=== PATIENT | male | born 1965 | race Two or more races ===

== ENCOUNTER → 2018-02-03 | Outpatient (CLI) | payer MEDICARE ==
--- NOTE | 2018-02-03 15:52 | RAD ---
History: Low back pain for 3 weeks. Comparison: None. Findings: AP and lateral views of the lumbar spine, 3 images. Segmented transverse processes are seen at the L1 level. 5 lumbar type vertebral bodies are present. No acute fracture or acute malalignment is identified. No spondylolysis or spondylolisthesis is appreciated. Mild narrowing of the L1-2 disc space is seen. Intervertebral disc heights are otherwise preserved. Facet degeneration is seen at L4-5 and L5-S1. Cholecystectomy clips are seen. Impression: Mild degeneration. Electronically signed by: Alberto Penaloza MD (02/03/2018 3:49 PM) [facility]
== END | disposition home or self-care (01) ==
LOC: PMG 15:05
PROVIDERS: ATTEND Nurse Practitioner Family
DX: M51.36 Other intervertebral disc degeneration, lumbar region (principal); M48.061 Spinal stenosis, lumbar region without neurogenic claudication
CPT/HCPCS: 72100

== ENCOUNTER 2018-11-27 21:23 | Inpatient (IN) | payer MEDICARE, OTHER ==
[~2018-11-27] VITALS: Ht 167.6 cm; Wt 81.8 kg
[~2018-11-27 21:23] MED LIST: ASCO100T4 PO; ATOR40TA PO; BIOT1CAP3 PO
--- NOTE | 2018-11-27 21:58 | PHYS DOC ---
Past History Past Medical History: Cancer (BRCA), High Cholesterol Past Surgical History: , Other Additional Past Surgical Histo: Mastectomy Smoking: Non-smoker Alcohol Use: None Drug Use: None Adult General Chief Complaint Chief Complaint: UPPER EXTREMITY SWELLING HPI HPI The patient presents to the emergency department for evaluation. She states that for the past 24 hours, she has developed pain and swelling in her left arm , with some warmth and erythema and some redness. She hasn't had any fevers or chills per se, but movement and palpation of her left arm worsen her pain. The pain radiates from her upper arm towards the left shoulder and left lateral chest area. She admits to some shortness of breath. She is noted to be tachycardic upon arrival. There are no alleviating or exacerbating factors to her symptoms, except as noted above. Review of Systems Review of Systems Constitutional: Denies fever or chills [] Eyes: Denies change in visual acuity, redness, or eye pain [] HENT: Denies nasal congestion or sore throat [] Respiratory: Denies cough. The patient admits to shortness of breath [] Cardiovascular: No additional information not addressed in HPI [] GI: Denies abdominal pain, nausea, vomiting, bloody stools or diarrhea [] : Denies dysuria or hematuria [] Musculoskeletal: Denies back pain or joint pain [] Integument: Denies rash or skin lesions [] Neurologic: Denies headache, focal weakness or sensory changes [] Endocrine: Denies polyuria or polydipsia [] All other systems were reviewed and found to be within normal limits, except as documented in this note. Allergies Allergies Allergies Coded Allergies Type Severity Reaction Last Updated Verified No Known Drug Allergies 06/30/15 No Physical Exam Physical Exam PHYSICAL EXAM: CONSTITUTIONAL: Well developed, well nourished HEAD: normocephalic, atraumatic EENT: PERRL, EOMI. Conjunctivae normal color, sclerae non-icteric; moist mucous membranes. NECK: Supple, non-tender; no meningismus. LUNGS: Lungs CTA, breathing even and unlabored. Normal air movement. HEART: Regular rate and rhythm, no murmur CHEST: No deformity; non-tender ABDOMEN: The abdomen is soft, and non-tender, no masses or bruits. EXTREM: There is tenderness to palpation, warmth, erythema, and some soft tissue swelling noted in the proximal right arm, primarily in the biceps area, and medially, but not limited to the biceps muscle group. The area is tender to palpation. There are some faint erythematous macules, without any vesicular or purpuric lesions. There is a palpable left radial pulse. There is normal range of motion of the joints of the left arm without any focal tenderness to palpation of the joints. The remainder of extremities are unremarkable, with Normal ROM; no deformity, no calf tenderness. Normal pulses palpable in all extremities. There is no pedal edema. SKIN: No rash; no diaphoresis NEURO: Alert; normal speech and cognition; CN's grossly intact; strength grossly intact without focal deficit. BACK: No CVA TTP. Current Patient Data Lab Results Laboratory Tests Test 11/27/18 22:28 White Blood Count 12.5 x10^3/uL Red Blood Count 4.32 x10^6/uL Hemoglobin 13.0 g/dL Hematocrit 38.7 % Mean Corpuscular Volume 90 fL Mean Corpuscular Hemoglobin 30 pg Mean Corpuscular Hemoglobin Concent 34 g/dL Red Cell Distribution Width 14.0 % Platelet Count 299 x10^3/uL Neutrophils (%) (Auto) 74 % Lymphocytes (%) (Auto) 18 % Monocytes (%) (Auto) 6 % Eosinophils (%) (Auto) 1 % Basophils (%) (Auto) 2 % Neutrophils # (Auto) 9.2 x10^3uL Lymphocytes # (Auto) 2.3 x10^3/uL Monocytes # (Auto) 0.8 x10^3/uL Eosinophils # (Auto) 0.1 x10^3/uL Basophils # (Auto) 0.2 x10^3/uL Lactic Acid Level 2.4 mmol/L Current Medications Medications (Trade) Dose Ordered Sig/Yesenia Route PRN Reason Start Time Stop Time Status Last Admin Dose Admin Morphine Sulfate (Morphine 4mg Syringe) 4 mg 1X ONCE IV 11/27/18 22:30 11/27/18 22:31 DC 11/27/18 22:39 Sodium Chloride 1,000 ml @ 1,000 mls/hr Q1H IV 11/27/18 22:30 11/27/18 23:29 DC 11/27/18 22:40 Clindamycin Phosphate 50 ml @ 100 mls/hr 1X ONCE IV 11/27/18 22:30 3/14/19 22:59 DC 11/27/18 22:39 Sodium Chloride 1,000 ml @ 1,000 mls/hr Q1H IV 11/27/18 23:30 11/28/18 01:51 EKG EKG [] Radiology/Procedures Radiology/Procedures [ER physician preliminary chest x-ray interpretation: No acute disease. ER physician preliminary left humerus x-ray interpretation: No acute bony abnormality or soft tissue abnormality] Course & Med Decision Making Course & Med Decision Making Pertinent Labs and Imaging studies reviewed. (See chart for details) []12:05 AM: The patient's condition remains stable. She remains tachycardic with a heart rate of 126 bpm, but her blood pressure is normal. Her pulse oximeter is 98% on room air. Differential diagnosis includes cellulitis, although myositis, or even DVT are certainly on the differential. There were several peripheral lab sticks that were attempted, as the initial blood hemolyzed, and the patient finally refused any further blood sticks. I did have an extensive discussion with the patient, through a jboss architect, about the inability to fully assess and evaluate the patient without obtaining further blood, but the patient declined. I discussed the case with her PCP, who will admit the patient for further evaluation and treatment. Dragon Disclaimer Dragon Disclaimer This electronic medical record was generated, in whole or in part, using a voice recognition dictation system. Departure Departure: Impression: Primary Impression: Left upper arm pain Additional Impression: Cellulitis Disposition: ADMITTED INPATIENT Admitting Physician: Dez Phelps Condition: STABLE Referrals: DEZ PHELPS MD (PCP) Problem Qualifiers MADDISON VAZQUEZ MD Nov 27, 2018 21:58
[2018-11-27] MEDS ORDERED: MORPHINE SULFATE 4 MG/ML DISP.SYRIN. IV ONE (22:30)
[2018-11-27] MEDS ORDERED: IV NORMAL SALINE 1,000ML 1,000 ML IV SCH (22:30)
[2018-11-27] MEDS ORDERED: CLINDAMYCIN 900MG PREMIX 50 ML IV ONE (22:30)
[2018-11-27 22:44] LABS: BASO # 0.2 x10^3/uL (0.0-0.2); BASO % 2 % (0-3); EOS # 0.1 x10^3/uL (0.0-0.7); EOS % 1 % (0-3); HEMATOCRIT 38.7 % (36.0-47.0); LYMPH # 2.3 x10^3/uL (1.0-4.8); LYMPH % 18 % (24-48); MEAN CORPUSCULAR HEMOGLOBIN 30 pg (25-35); MEAN CORPUSCULAR HGB CONC 34 g/dL (31-37); MEAN CORPUSCULAR VOLUME 90 fL (79-100); MONO # 0.8 x10^3/uL (0.0-1.1); MONO % 6 % (0-9); NEUT # 9.2 x10^3uL (1.8-7.7); NEUT % 74 % (31-73); PLATELET COUNT 299 x10^3/uL (140-400); RED BLOOD COUNT 4.32 x10^6/uL (3.50-5.40); WHITE BLOOD COUNT 12.5 x10^3/uL (4.0-11.0)
--- NOTE | 2018-11-27 23:16 | RAD ---
EXAM: AP and lateral views left humerus DATE: 11/27/2018 10:45 PM INDICATION: Left arm pain, swelling, redness. Hx: Left breast cancer w/Mastectomy COMPARISON: No Prior FINDINGS/ IMPRESSION: No evidence of acute fracture or dislocation. Electronically signed by: Ariel Livingston MD (11/27/2018 11:13 PM) [facility]
--- NOTE | 2018-11-27 23:23 | RAD ---
EXAM: AP View of the chest DATE: 11/27/2018 10:43 PM INDICATION: Short of air, Left arm pain, swelling, redness. Hx: Left breast cancer w/Mastectomy COMPARISON: 06/30/2015 FINDINGS: The heart is not enlarged. Mediastinal and hilar contours are normal. No focal parenchymal airspace opacity. No pleural effusion or pneumothorax. Mild rightward curvature of the thoracic spine. IMPRESSION: 1. No evidence for acute intracranial process. Electronically signed by: Ariel Livingston MD (11/27/2018 11:20 PM) [facility]
[2018-11-28 00:39] LABS: ALBUMIN 3.2 g/dL (3.4-5.0); ALBUMIN/GLOBULIN RATIO 0.9 (1.0-1.7); CALCIUM 8.5 mg/dL (8.5-10.1); CREATININE 0.7 mg/dL (0.6-1.0); GFR 88.2; TOTAL BILIRUBIN 0.2 mg/dL (0.2-1.0); TOTAL PROTEIN 6.7 g/dL (6.4-8.2)
[2018-11-28 00:41] LABS: POTASSIUM 4.5 mmol/L (3.5-5.1)
--- NOTE | 2018-11-28 01:59 | RAD ---
Ultrasound venous Doppler INDICATION:LUE PAIN, SWELLING, REDNESS X 2 DAYS TECHNIQUE: Grayscale, color Doppler and spectral waveform ultrasound images of the left upper extremity deep veins obtained. COMPARISON: None FINDINGS: The interrogated deep veins are compressible and demonstrate evidence of blood flow with normal respiratory variation and response to augmentation. 1.4 x 0.6 x 0.6 cm hypoechoic lesion is seen with central hypoechogenicity most likely a lymph node. IMPRESSION: No sonographic evidence of acute DVT of the left upper extremity deep veins. Electronically signed by: Steve Coronado DO (11/28/2018 1:56 AM) [id number]
[2018-11-28 02:00] VITALS: BP 116/75
[2018-11-28] MEDS: MORPHINE SULFATE 4 MG/ML DISP.SYRIN. IV PRN ×2 (02:19→10:19)
[2018-11-28] MEDS: IV NORMAL SALINE 1,000ML 1,000 ML IV SCH ×2 (02:30→02:32)
[2018-11-28] MEDS ORDERED: ATOR10TA60 PO (02:40)
[2018-11-28] MEDS ORDERED: TAMO20TA PO (02:40)
[2018-11-28 05:26] VITALS: BP 102/59
[2018-11-28] MEDS: CLINDAMYCIN 600MG PREMIX 50 ML IV SCH ×3 (05:40→20:18)
[2018-11-28] MEDS: TAMOXIFEN 10 MG TABLET PO SCH (10:18)
[2018-11-28] MEDS: IBUPROFEN 400 MG TABLET. PO PRN (10:19)
[2018-11-28 11:14] VITALS: BP 101/61
[2018-11-28] MEDS ORDERED: ONDANSETRON PF 4 MG/2 ML VIAL. IV PRN (14:15)
[2018-11-28 14:40] VITALS: BP 100/65
[2018-11-28] MEDS ORDERED: PROCHLORPERAZINE 10 MG/2 ML VIAL. IV PRN (15:15)
--- NOTE | 2018-11-28 16:04 | RAD ---
Acute abdomen series with chest, 3 views, 11/28/2018: HISTORY: Abdominal pain There is gas and stool in the colon in a nonspecific pattern. No free air is present in the abdomen. There is no evidence organomegaly or abnormal abdominal calcifications. Surgical clips in the right upper quadrant suggest previous cholecystectomy. There is a mild thoracolumbar scoliosis. The heart size is normal. The lungs are clear. There is no evidence of pleural fluid. IMPRESSION: No acute abdominal abnormality is detected. Electronically signed by: Omar Kulkarni MD (11/28/2018 4:01 PM) [facility]
[2018-11-28 19:05] VITALS: BP 106/71
[2018-11-28] MEDS: LACTOBACILLUS RHAMNOSUS GG 1 CAPSULE. PO SCH (20:20)
--- NOTE | 2018-11-28 21:00 | HP ---
ADMIT DATE: 11/28/2018 HISTORY OF PRESENT ILLNESS: A 53-year-old female with a history of left breast cancer, who came in through the Emergency Room with increased swelling to her left arm and up into her left side of her neck and face. She has had this for the last 24 hours prior to admission. She has not had any fever or chills per se, but the arm itself is extremely tender, painful to touch. The patient is running a temperature and had a pulse of approximately 120 and temperature up to 100.3, respiratory rate 18, oxygen saturation only 93%. The patient was admitted for cellulitis to that left arm and left side of her neck. All these are secondary to her breast cancer and removal of lymph nodes from her axilla. ALLERGIES: The patient has no known allergies. PAST MEDICAL HISTORY: The patient's history shows the patient has chronic lymphedema in the left upper extremity, hypercholesterolemia, abdominal surgery, breast cancer, mastectomy on the left. She has had previous C-sections, chronic joint pain, arthritis, and cellulitis. HOME MEDICATIONS: Noted and there was only one, tamoxifen 20 mg daily. SOCIAL HISTORY: No smoking, alcohol, or drug use. Full code. The patient's son acts as a streets and buildings decorator as she speaks very limited Danish. REVIEW OF SYSTEMS: Outside of this severe pain in her left arm requiring IV medication, the patient denies any shortness of breath, headaches, visual changes, blurred vision, abdominal pain, nausea, vomiting, and so forth at the present time. PHYSICAL EXAMINATION: GENERAL: This is a very pleasant female in severe pain. VITAL SIGNS: Blood pressure 102/60, respiratory rate 20, pulse 120, temperature 100.3, oxygen saturation 93%. HEENT: The patient in turn has head that is atraumatic, normocephalic. Eyes are PERRLA. Mouth and throat, normal. NECK: Swollen on the left side of her neck into her face. LUNGS: Clear. CARDIOVASCULAR: Regular sinus rhythm. MUSCULOSKELETAL: Left arm is markedly erythematous from the shoulder down into the left forearm. Pulses noted distally. NEUROLOGIC: The patient is alert and oriented x 3. EXTREMITIES: No clubbing, cyanosis nor edema except for this left arm, which shows chronic lymphedema. ABDOMEN: Soft, nontender, no rebound or guarding. Positive bowel sounds. LABORATORY DATA: The patient's electrolytes are basically stable. Blood sugar 112. Lactic acid elevated. Albumin slightly low at 3.2. The patient's white count 12.5. The patient will be started on IV clindamycin as well as that of Levaquin. The patient's IV, however, came out. She refused to have another IV. We will try to give these either IM or orally until a PICC line can be placed as soon as possible. She has received several doses of the antibiotic already. Otherwise, we will continue to monitor the patient accordingly and make further evaluation on her as indicated. IMPRESSION: 1. Cellulitis to the left arm and left side of the neck. 2. History of breast cancer. 3. Lymphedema. 4. Sepsis. PLAN: As above. ELVIRA DE LA O MD DR: COLEMAN/aida JOB#: [id number] / [id number]
[2018-11-28] MEDS: CLINDAMYCIN HCL 150 MG CAPSULE PO SCH (21:20)
[2018-11-28 23:04] VITALS: BP 109/87
[2018-11-29] MEDS: CLINDAMYCIN 600MG PREMIX 50 ML IV SCH ×3 (04:26→21:35)
[2018-11-29] MEDS: CLINDAMYCIN HCL 150 MG CAPSULE PO SCH ×3 (05:21→19:26)
[2018-11-29 06:49] LABS: BASO % 1 % (0-3); EOS # 0.1 x10^3/uL (0.0-0.7); EOS % 1 % (0-3); HEMATOCRIT 36.4 % (36.0-47.0); HEMOGLOBIN 12.1 g/dL (12.0-15.5); LYMPH # 2.7 x10^3/uL (1.0-4.8); LYMPH % 37 % (24-48); MEAN CORPUSCULAR HEMOGLOBIN 30 pg (25-35); MEAN CORPUSCULAR HGB CONC 33 g/dL (31-37); MEAN CORPUSCULAR VOLUME 90 fL (79-100); MONO # 0.8 x10^3/uL (0.0-1.1); MONO % 11 % (0-9); NEUT # 3.8 x10^3uL (1.8-7.7); NEUT % 51 % (31-73); PLATELET COUNT 278 x10^3/uL (140-400); RED BLOOD COUNT 4.05 x10^6/uL (3.50-5.40); RED CELL DISTRIBUTION WIDTH 13.9 % (11.5-14.5); WHITE BLOOD COUNT 7.4 x10^3/uL (4.0-11.0)
[2018-11-29 06:54] LABS: CALCIUM 9.1 mg/dL (8.5-10.1); CREATININE 0.7 mg/dL (0.6-1.0); GFR 88.2
[2018-11-29] MEDS: TAMOXIFEN 10 MG TABLET PO SCH (09:19)
[2018-11-29] MEDS: LACTOBACILLUS RHAMNOSUS GG 1 CAPSULE. PO SCH ×2 (09:19→19:31)
[2018-11-29] MEDS ORDERED: levoFLOXacin 750 MG TABLET PO ONE (10:00)
[2018-11-29 10:34] VITALS: BP 105/68
[2018-11-29 14:37] VITALS: BP 112/75
[2018-11-29 19:05] VITALS: BP 105/77
--- NOTE | 2018-11-29 22:06 | PN ---
DATE: SUBJECTIVE: A 53-year-old female with cellulitis to her left arm, left side of her neck secondary to lymphedema secondary to breast cancer. The patient is feeling a little better today. The arm is not quite as painful. PHYSICAL EXAMINATION: VITAL SIGNS: She is still running temperatures up to 99.7, pulse rates were in the low 90s, respiratory rate 20, blood pressure 105/60 today. GENERAL: The patient is having a PICC line placed in today. Other than that, the patient has been feeling a little bit better overall. She was complaining of some abdominal discomfort, but as it turned out her abdominal series was negative and in any case, the patient is resting fairly comfortably and otherwise her left arm is less swollen, red. LUNGS: Clear. CARDIOVASCULAR: Stable. ABDOMEN: Soft, nontender. IMPRESSION: Sepsis with that of cellulitis to the left arm, left side of the neck, shoulder area with breast cancer and looks edema to the left arm. PLAN: Continue on IV antibiotic therapy, PICC line and we will determine where she gets her antibiotics as well as an inpatient or outpatient. ELVIRA DE LA O MD DR: COLEMAN/aiad JOB#: [id number] / [id number]
[2018-11-29 22:40] VITALS: BP 107/74
[2018-11-30] MEDS: CLINDAMYCIN HCL 150 MG CAPSULE PO SCH (04:18)
[2018-11-30] MEDS: CLINDAMYCIN 600MG PREMIX 50 ML IV SCH ×3 (05:15→21:14)
[2018-11-30 05:56] VITALS: BP 91/58
[2018-11-30] MEDS: TAMOXIFEN 10 MG TABLET PO SCH (09:24)
[2018-11-30] MEDS: LACTOBACILLUS RHAMNOSUS GG 1 CAPSULE. PO SCH ×2 (09:25→20:05)
[2018-11-30] MEDS: IBUPROFEN 400 MG TABLET. PO PRN (09:30)
[2018-11-30 11:16] VITALS: BP 113/79
[2018-11-30] MEDS ORDERED: MAALOX:LIDO:APAP 6:2:1 ORAL SUSPENSION 180 ML BOTTLE. PO PRN (11:45)
[2018-11-30 16:00] VITALS: BP 117/79
--- NOTE | 2018-11-30 18:32 | PN ---
DATE: SUBJECTIVE: The patient is a pleasant 53-year-old female who has a breast cancer of the left breast. She has lymphedema of the left arm and suffered severe cellulitis to left arm, left chest wall and the left side of her neck. She is markedly improved. She is still having some pain in her arm, but markedly improved. The patient's vital signs have been improved and her temperature has come down. OBJECTIVE: VITAL SIGNS: Blood pressure 110/80, respiratory rate 20, pulse 90 and afebrile. GENERAL: The patient is alert and oriented x 3. EXTREMITIES: Left arm still swollen across from lymphedema, but less swelling and redness, but her movement was still painful. IMPRESSION: Lymphedema, cellulitis of the left arm secondary to lymphedema, breast cancer, also affecting the left side of the neck and face, but markedly improved. PLAN: Continue on IV antibiotic therapy for outpatient therapy. ELVIRA DE LA O MD DR: COLEMAN/aida JOB#: [id number] / [id number]
[2018-11-30 19:56] VITALS: BP 116/81
[2018-11-30 23:15] VITALS: BP 112/78
[2018-12-01 05:00] VITALS: BP 100/69
[2018-12-01] MEDS: CLINDAMYCIN 600MG PREMIX 50 ML IV SCH ×2 (05:17→14:13)
[2018-12-01] MEDS: IBUPROFEN 400 MG TABLET. PO PRN (05:37)
[2018-12-01] MEDS: LACTOBACILLUS RHAMNOSUS GG 1 CAPSULE. PO SCH (08:02)
[2018-12-01] MEDS: TAMOXIFEN 10 MG TABLET PO SCH (08:03)
[2018-12-01 13:45] VITALS: BP 129/86
[2018-12-01] MEDS ORDERED: LEVO750T31 PO (14:01)
[2018-12-01] MEDS ORDERED: LACT1CAP19 PO (14:01)
--- NOTE | 2018-12-01 19:53 | DS ---
DATE OF DISCHARGE: 12/01/2018 HOSPITAL COURSE: The patient is a 53-year-old female who had cellulitis to her left arm secondary to lymphedema, secondary to breast cancer, mastectomy and nephrectomy on the left side. The patient made excellent progress during the rest of her hospitalization and because of insurance problems, was placed back on oral medications, although there was tremendous resolvement of her situation with her infection to that left arm. She will be referred on to the lymphedema clinic. The patient will continue to be monitored carefully as an outpatient, on oral antibiotics and the patient otherwise will continue to be monitored carefully. IMPRESSION: Cellulitis, left arm; chronic lymphedema secondary to breast cancer, swelling to the left side of her neck and face. The patient has [id number] protein malnutrition, sepsis secondary to infection, elevated temperature of 100.3 with a heart rate up to 125, blood pressure dropped down to as low as 91/58. DISCHARGE INSTRUCTIONS: The patient will be discharged on Levaquin 500 daily for at least another 10 days, follow up accordingly as an outpatient lymphedema clinic. Regular diet, decreased activity. Make further evaluation on her as indicated. ELVIRA DE LA O MD DR: COLEMAN/aida JOB#: [id number] / [id number]
== END 2018-12-01 15:30 | disposition home or self-care (01) | DRG 872 ==
LOC: ER 21:23 → MERGE 11-28 00:05 → 1 SOUTH 11-28 00:05
PROVIDERS: ADMIT Family Medicine; ATTEND Family Medicine
PROC: 02HV33Z Insertion of Infusion Device into Superior Vena Cava, Percutaneous Approach (ICD-10-PCS; principal; 2018-11-29)
PROC: B548ZZA Ultrasonography of Superior Vena Cava, Guidance (ICD-10-PCS; 2018-11-29)
DX: A41.9 Sepsis, unspecified organism (principal); L03.114 Cellulitis of left upper limb; E44.0 Moderate protein-calorie malnutrition; I89.0 Lymphedema, not elsewhere classified; Z68.29 Body mass index [BMI] 29.0-29.9, adult; E78.00 Pure hypercholesterolemia, unspecified; Z85.3 Personal history of malignant neoplasm of breast; Z90.5 Acquired absence of kidney; G89.29 Other chronic pain; M19.90 Unspecified osteoarthritis, unspecified site; Z90.10 Acquired absence of unspecified breast and nipple
CPT/HCPCS: 36415; 36569; 71045; 73060; 74022; 80048; 80053; 82550; 83605; 83880; 85025; 85379; 85610; 85730; 87040; 93971; 96365; 96366; 96375; J0780; J1956; J2270; J2405; J3490; 99285-25; J7030

== ENCOUNTER 2019-06-23 13:52 | Emergency (ER) | payer MEDICARE ==
[~2019-06-23 13:52] MED LIST changes: +ATOR10TA60 PO; +LACT1CAP19 PO; +LEVO750T31 PO; +TAMO20TA PO
--- NOTE | 2019-06-23 14:36 | RAD ---
EXAM: Chest, single view. HISTORY: Chest pain. COMPARISON: None. FINDINGS: A frontal view of the chest obtained. There is no infiltrate, pleural effusion or pneumothorax. The heart is normal in size. IMPRESSION: No acute pulmonary finding. Electronically signed by: Lizz Harp MD (06/23/2019 2:33 PM) [place] [id number]
--- NOTE | 2019-06-23 14:54 | EKG ---
[address] [address] Test Date: 2019-06-23 Test Time: 14:19:46 Pat Name: ALFREDO BOWMAN Department: Room: Gender: F Hot Roll Inspector: : 1965 Requested By: FALGUNI CASANOVA Order Number: [id number] Reading MD: Tor Vasquez MD Measurements Intervals [place] Rate: 113 P: 0 MA: 154 QRS: -8 QRSD: 72 T: 72 QT: 366 QTc: 508 Interpretive Statements SINUS TACHYCARDIA NON-SPECIFIC ST/T CHANGES Electronically Signed On 06-30-2019 11:34:48 CDT by Tor Vasquez MD
--- NOTE | 2019-06-23 15:26 | PHYS DOC ---
Past History Past Medical History: Other Additional Past Medical Histor: breast cancer, htn Past Surgical History: Other Additional Past Surgical Histo: Double mastectomy Alcohol Use: None Drug Use: None Adult General Chief Complaint Chief Complaint: CHEST PAIN [facility] HPI Patient is a 53-year-old female who presents with complaint of chest pain along with left arm pain and swelling. Patient was in seeing her primary provider and was going to have a venous ultrasound to rule out DVT but then started complaining of chest pain. Patient was given some nitroglycerin for the chest pain but then developed headache as well. Patient rates the pain as moderate. She denies any nausea or vomiting. Patient's chest pain was not improved with nitroglycerin. Patient has had bilateral mastectomy and does report that she had similar swelling in the past and her arm but was diagnosed with cellulitis at that time.[] Review of Systems Review of Systems Constitutional: Denies fever or chills [] Respiratory: Denies cough or shortness of breath [] Cardiovascular: No additional information not addressed in HPI [] GI: Denies abdominal pain, nausea, vomiting or diarrhea [] Musculoskeletal: Complains of left arm swelling and pain [] Integument: Denies rash or skin lesions [] Neurologic: Denies headache, focal weakness or sensory changes [] All other systems were reviewed and found to be within normal limits, except as documented in this note. Allergies Allergies Allergies Coded Allergies Type Severity Reaction Last Updated Verified No Known Drug Allergies 12/06/18 No Physical Exam Physical Exam Constitutional: Well developed, well nourished, no acute distress, non-toxic appearance. [] HENT: Normocephalic, atraumatic, bilateral external ears normal, oropharynx moist, no oral exudates, nose normal. [] Eyes: PERRLA, EOMI, conjunctiva normal, no discharge. [] Neck: Normal range of motion, no tenderness, supple, no stridor. [] Cardiovascular: There is tachycardic rate with regular rhythm[] Lungs & Thorax: Bilateral breath sounds clear to auscultation [] Abdomen: Bowel sounds normal, soft, no tenderness. [] Skin: Warm, dry, no erythema, no rash. [] Extremities: Left upper extremity does demonstrate moderate amount of soft tissue swelling, redness and warmth extending distal to elbow. [] Neurologic: Alert and oriented X 3, no focal deficits noted. [] Current Patient Data Vital Signs Vital Signs Date Time Temp Pulse Resp B/P (MAP) Pulse Ox O2 Delivery O2 Flow Rate FiO2 06/23/19 14:21 98.8 117 97 06/23/19 14:04 16 112/88 (96) EKG EKG EKG demonstrates sinus tachycardia with rate of 113.[] Radiology/Procedures Radiology/Procedures [] Impressions: PROCEDURE: VENOUS UPPER EXTREMITY LEFT EXAM: Left upper extremity venous Doppler sonogram. HISTORY: Pain and swelling. TECHNIQUE: Malcolm scale and color Doppler sonographic evaluation of the left upper extremity veins with spectral waveform analysis was performed. FINDINGS: There is normal color flow, normal compressibility and there are normal spectral waveforms in the left upper extremity veins. IMPRESSION: No Doppler evidence of upper extremity venous thrombosis. Electronically signed by: Lizz Harp MD (06/23/2019 3:29 PM) [facility] Course & Med Decision Making Course & Med Decision Making Pertinent Labs and Imaging studies reviewed. (See chart for details) [] Dragon Disclaimer Dragon Disclaimer This electronic medical record was generated, in whole or in part, using a voice recognition dictation system. Departure Departure: Impression: Primary Impression: Cellulitis of left arm Disposition: HOME, SELF-CARE Condition: STABLE Referrals: ALBERT RUELAS APRN (PCP) Patient Instructions: Cellulitis Scripts Hydrocodone Bit/Acetaminophen (NORCO 5-325 TABLET) 1 Each Tablet 1 TAB PO PRN Q6HRS PRN for PAIN, #12 TAB 0 Refills Prov: FALGUNI CASANOVA Jr. DO 06/23/19 Sulfamethoxazole/Trimethoprim (BACTRIM DS TABLET) 1 Each Tablet 1 TAB PO BID for infection, #20 TAB Prov: FALGUNI CASANOVA Jr. DO 06/23/19 FALGUNI CASANOVA Jr. DO Jun 23, 2019 15:26
--- NOTE | 2019-06-23 15:32 | RAD ---
EXAM: Left upper extremity venous Doppler sonogram. HISTORY: Pain and swelling. TECHNIQUE: Malcolm scale and color Doppler sonographic evaluation of the left upper extremity veins with spectral waveform analysis was performed. FINDINGS: There is normal color flow, normal compressibility and there are normal spectral waveforms in the left upper extremity veins. IMPRESSION: No Doppler evidence of upper extremity venous thrombosis. Electronically signed by: Lizz Harp MD (06/23/2019 3:29 PM) [place] [id number]
[2019-06-23 15:56] LABS: BASO # 0.1 x10^3/uL (0.0-0.2); BASO % 1 % (0-3); EOS % 0 % (0-3); HEMATOCRIT 41.6 % (36.0-47.0); HEMOGLOBIN 13.8 g/dL (12.0-15.5); LYMPH # 1.8 x10^3/uL (1.0-4.8); LYMPH % 20 % (24-48); MEAN CORPUSCULAR HEMOGLOBIN 30 pg (25-35); MEAN CORPUSCULAR HGB CONC 33 g/dL (31-37); MEAN CORPUSCULAR VOLUME 90 fL (79-100); MONO # 0.6 x10^3/uL (0.0-1.1); MONO % 7 % (0-9); NEUT # 6.4 x10^3uL (1.8-7.7); NEUT % 72 % (31-73); PLATELET COUNT 340 x10^3/uL (140-400); RED BLOOD COUNT 4.61 x10^6/uL (3.50-5.40); RED CELL DISTRIBUTION WIDTH 13.8 % (11.5-14.5)
[2019-06-23 16:14] LABS: ALBUMIN 3.8 g/dL (3.4-5.0); ALBUMIN/GLOBULIN RATIO 0.9 (1.0-1.7); CALCIUM 9.3 mg/dL (8.5-10.1); CREATININE 0.7 mg/dL (0.6-1.0); GFR 88.2; MAGNESIUM 1.9 mg/dL (1.8-2.4); TOTAL BILIRUBIN 0.6 mg/dL (0.2-1.0); TOTAL PROTEIN 8.1 g/dL (6.4-8.2)
[2019-06-23 17:18] LABS: BACTERIA,URINE 0 /HPF (0-FEW); BILIRUBIN,URINE NEG (NEG); CLARITY,URINE HAZY; COLOR,URINE YELLOW; GLUCOSE,URINE NEG (NEG); NITRITE,URINE NEG (NEG); RBC,URINE RARE /HPF (0-2); SQUAMOUS EPITHELIAL CELL,UR OCC /LPF; UROBILINOGEN,URINE 0.2 mg/dL (0.2 mg/dL)
[2019-06-23] MEDS ORDERED: ceFAZolin SODIUM 1 GM VIAL ONE (17:24)
[2019-06-23] MEDS ORDERED: IV NORMAL SALINE 50ML 50 ML ONE (17:24)
[2019-06-23] MEDS ORDERED: HYDR-3165 PO (17:32)
[2019-06-23] MEDS ORDERED: SULF1TAB24 PO (17:32)
[2019-06-23] MEDS ORDERED: KETOROLAC 30 MG/ML VIAL. IV ONE (17:45)
[2019-06-23 18:19] VITALS: BP 128/82
== END 2019-06-23 18:21 | disposition home or self-care (01) ==
LOC: ER 13:52
DX: L03.114 Cellulitis of left upper limb (principal); R07.89 Other chest pain
CPT/HCPCS: 36415; 71045; 80053; 81001; 81025; 83735; 83880; 84484; 85025; 85379; 87040; 87086; 93005; 93971; 96365; 96375; 99285; J0690; J1885

== ENCOUNTER → 2020-03-17 | Outpatient (CLI) | payer MEDICARE ==
[~2020-03-17] MED LIST changes: +HYDR-3165 PO; +IOHEXOL 240 MG/ML 50ML VIAL. ONE; +IOHEXOL 240 MG/ML 50ML VIAL. PO ONE; +IOHEXOL 300 MG/ML 75 ML VIAL. IV ONE; +SULF1TAB24 PO
--- NOTE | 2020-03-17 14:48 | RAD ---
CT CHEST ABD PELVIS W/CONTRAST Clinical Indication: Breast cancer COMPARISON: CT chest 08/05/2018 TECHNIQUE: Multiple contiguous axial images were obtained throughout the chest, abdomen, and pelvis with the use of IV contrast. Axial images were reformatted into coronal and sagittal planes. 75 mL Omnipaque 300 was administered. One or more of the following dose reduction techniques were utilized: Automated exposure control (AEC), Adjustment of mA and/or kV according to patient size, Use of iterative reconstruction technique such as ASiR, CT scan done according to ALARA and image gently/image wisely. Findings: The thyroid is symmetric. There is no axillary, mediastinal, or hilar adenopathy. The thoracic aorta diameter is normal. The cardiac size is normal. There is no pericardial effusion. The central airways are patent. No pulmonary mass consolidation. Stable left lower lobe nodule measuring 0.5 cm (series 4 image 81). No pleural effusion is observed. There is no pneumothorax. The liver, spleen, pancreas, and adrenal glands are unremarkable. Cholecystectomy. There are a couple of nonobstructive left renal calculi, largest measuring 7 mm. No hydronephrosis There is no significant mesenteric or retroperitoneal adenopathy identified. There is no evidence of free intraperitoneal fluid or pneumoperitoneum. Visualized portions of the bowel are grossly unremarkable. Urinary bladder is decompressed. Uterus is present. There is no significant pelvic ascites. No significant iliac or inguinal adenopathy is identified. No aggressive lytic or blastic osseous lesions. IMPRESSION: No evidence of metastatic disease in the chest, abdomen, or pelvis. No mass or lymphadenopathy. Electronically signed by: Robert Miner MD (03/17/2020 2:45 PM) [id number]
== END | disposition home or self-care (01) ==
LOC: CT 09:59
PROVIDERS: ATTEND Internal Medicine Hematology & Oncology
DX: C50.112 Malignant neoplasm of central portion of left female breast (principal); N20.0 Calculus of kidney; Z17.0 Estrogen receptor positive status [ER+]
CPT/HCPCS: 71260; 74177; Q9966; Q9967

== ENCOUNTER 2020-07-23 23:00 | Observation (INO) | payer MEDICARE ==
[~2020-07-23] VITALS: Ht 167.6 cm; Wt 78.8 kg
[~2020-07-23 23:00] MED LIST changes: -IOHEXOL 240 MG/ML 50ML VIAL. ONE; -IOHEXOL 240 MG/ML 50ML VIAL. PO ONE; -IOHEXOL 300 MG/ML 75 ML VIAL. IV ONE
--- NOTE | 2020-07-23 23:09 | PHYS DOC ---
Past History Past Medical History: Other Additional Past Medical Histor: breast cancer, htn Past Surgical History: Other Additional Past Surgical Histo: Double mastectomy Alcohol Use: None Drug Use: None General Adult HPI: HPI: ( Son translates- ) Patient is a 54 year old Female who presents with above hx and complaints left arm cellulitis. Left arm is swollen and red. There is some axillary swelling. No specific area of injury noted. Distal capillary refill is equal to right hand. Patient is right-hand dominant. Patient had the problem off and on for the past 9 years. Previous episodes have been treated with IV antibiotics at the doctor's office/ or hospital and then sent home on oral antibiotics. Pt. has had pevious admissions for cellulitis of the Lt. arm, last was 11/28/18. Last tetanus was 2014. Patient denies any recent travel outside the [facility]. No specific ill contacts. Patient follows with Dr. Phelps. Review of Systems: Review of Systems: Constitutional: Subjective history of fever or chills Eyes: Denies change in visual acuity HENT: Denies nasal congestion or sore throat Respiratory: Denies cough or shortness of breath Cardiovascular: Denies chest pain or edema GI: Denies abdominal pain, nausea, vomiting, bloody stools or diarrhea : Denies dysuria Musculoskeletal: Complaints of Lt. arm pain Integument: Complains of left arm cellulitis Neurologic: Denies headache, focal weakness or sensory changes Endocrine: Denies polyuria or polydipsia Lymphatic: Denies swollen glands Psychiatric: Denies depression or anxiety Family History: Family History: Noncontributory Current Medications: Current Meds: See nursing for home medications Allergies: Allergies: Allergies Coded Allergies Type Severity Reaction Last Updated Verified No Known Drug Allergies 12/06/18 No Physical Exam: PE: Constitutional: Moderate acute distress, non-toxic appearance. [] HENT: Normocephalic, atraumatic, bilateral external ears normal, oropharynx moist, no oral exudates, nose normal. [] Eyes: PERRLA, EOMI, conjunctiva normal, no discharge. [] Neck: Normal range of motion, no tenderness, supple, no stridor. [] Cardiovascular: Tachycardia heart rate regular rhythm, no murmur [] Lungs & Thorax: Bilateral breath sounds equal apex auscultation [] bilateral mastectomy scars Abdomen: Bowel sounds normal, soft, no tenderness, no masses, no pulsatile masses. Old surgery scars.- Skin: Warm, dry, no erythema, left arm cellulitis as per HPI Back: No tenderness, no CVA tenderness. [] Extremities: Left arm tenderness, no cyanosis, no clubbing, ROM intact, the arm edema. [] Neurologic: Alert and oriented X 3, moves extremities on request, and has distal sensory, no focal deficits noted. [] Psychologic: Affect anxious, judgement normal, mood normal. [] EKG: EKG: My interpretation of EKG shows a sinus tachycardia at 107 bpm. There is left axis. No findings of acute STEMI of contralateral changes. [] Radiology/Procedures: Radiology/Procedures: [] Heart Score: Risk Factors: Risk Factors: DM, Current or recent (<one month) smoker, HTN, HLP, family history of CAD, obesity. Risk Scores: Score 0 - 3: 2.5% MACE over next 6 weeks - Discharge Home Score 4 - 6: 20.3% MACE over next 6 weeks - Admit for Clinical Observation Score 7 - 10: 72.7% MACE over next 6 weeks - Early Invasive Strategies Course & Med Decision Making: Course & Med Decision Making Pertinent Labs and Imaging studies reviewed. (See chart for details) Discussed presentation, testing and treatment plan with Dr. Phelps, will admit to start on IV antibiotics hopefully will be able to discharge after initial IV treatment on a course of oral antibiotics or IV pic line. Impression: 1. Lt. Arm Cellulitis 2. Hx. Chronic lymphedema 3. History bilateral mastectomy 4. Elevated CRP 17.8 5. Elevated Alk Phos 141 [] Dragon Disclaimer: Dragon Disclaimer: This electronic medical record was generated, in whole or in part, using a voice recognition dictation system. Departure Departure: Referrals: ELVIRA PHELPS MD (PCP) Arjun Disclaimer This chart was dictated in whole or in part using Voice Recognition software in a busy, high-work load, and often noisy Emergency Department environment. It may contain unintended and wholly unrecognized errors or omissions. DUSTIN ABREU MD Jul 23, 2020 23:09
[2020-07-23] MEDS ORDERED: VANCOMYCIN 1 GM in IV NORMAL SALINE 250ML 250 ML IV ONE (23:30)
[2020-07-23] MEDS ORDERED: TETANUS AND DIPHTHERIA TOX/PF 0.5 ML VIAL. VAX IM ONE (23:30)
--- NOTE | 2020-07-23 23:46 | EKG ---
[facility] ED [facility] [address] [place] [id number] Test Date: 2020-07-23 Test Time: 23:41:04 Pat Name: ALFREDO BOWMAN Department: Room: Gender: F Sliver Handler: : [id number] Requested By: DUSTIN ABREU Order Number: [id number] Reading MD: Measurements Intervals [place] Rate: 107 P: -90 MD: 162 QRS: -6 QRSD: 68 T: 55 QT: 378 QTc: 511 Interpretive Statements SINUS TACHYCARDIA LEFTWARD AXIS OTHERWISE NORMAL ECG RI6.02 No previous ECG available for comparison
[2020-07-24] MEDS ORDERED: IV NORMAL SALINE 50ML 50 ML ONE
[2020-07-24] MEDS ORDERED: VANCOMYCIN 1 GM in IV NORMAL SALINE 250ML 250 ML IV ONE
[2020-07-24] MEDS ORDERED: oxyCODONE/APAP 5/325 1 TAB TABLET PO ONE
[2020-07-24] MEDS ORDERED: VANCOMYCIN 1 GM VIAL. ONE
[2020-07-24] MEDS ORDERED: IV NORMAL SALINE 500ML 500 ML ONE
[2020-07-24] MEDS ORDERED: ONDANSETRON PF 4 MG/2 ML VIAL. IVP PRN
[2020-07-24] MEDS ORDERED: VANCOMYCIN 2 GM in IV NORMAL SALINE 500ML 500 ML IV ONE
[2020-07-24] MEDS ORDERED: DIPH,PERTUSS(ACELL),TET VAC/PF 0.5 ML SYRINGE. VAX IM ONE
[2020-07-24] MEDS ORDERED: oxyCODONE/APAP 5/325 1 TAB TABLET PO PRN
[2020-07-24] MEDS ORDERED: ACETAMINOPHEN 325 MG TABLET PO PRN
[2020-07-24] MEDS ORDERED: IV RINGERS SOLUTION,LACTATED 1,000 ML IV SCH
[2020-07-24] MEDS ORDERED: VANCOMYCIN PER PHARMACY MC PRN
[2020-07-24] MEDS ORDERED: cefTRIAXone SODIUM 1 GM VIAL ONE (00:01)
[2020-07-24 00:15] LABS: BASO # 0.1 x10^3/uL (0.0-0.2); BASO % 1 % (0-3); EOS # 0.1 x10^3/uL (0.0-0.7); EOS % 1 % (0-3); HEMATOCRIT 38.1 % (36.0-47.0); HEMOGLOBIN 12.4 g/dL (12.0-15.5); LYMPH # 2.1 x10^3/uL (1.0-4.8); LYMPH % 23 % (24-48); MEAN CORPUSCULAR HEMOGLOBIN 30 pg (25-35); MEAN CORPUSCULAR HGB CONC 33 g/dL (31-37); MEAN CORPUSCULAR VOLUME 91 fL (79-100); MONO # 0.5 x10^3/uL (0.0-1.1); MONO % 6 % (0-9); NEUT % 68 % (31-73); PLATELET COUNT 275 x10^3/uL (140-400); RED BLOOD COUNT 4.18 x10^6/uL (3.50-5.40); WHITE BLOOD COUNT 8.8 x10^3/uL (4.0-11.0)
[2020-07-24] MEDS ORDERED: ANTI-COAG MONITOR BY PHARMACY. MC PRN (00:15)
[2020-07-24 00:17] LABS: CALCIUM 9.1 mg/dL (8.5-10.1); CREATININE 0.7 mg/dL (0.6-1.0); GFR 87.9; POTASSIUM 3.8 mmol/L (3.5-5.1)
--- NOTE | 2020-07-24 00:23 | RAD ---
Study: CR PORTABLE CHEST 1V Indication: Chest wall pain. Cellulitis. History of breast cancer. Comparison: 06/23/2019 chest radiograph; CT chest 03/17/2020 Findings: Bilateral breast implants. Hazy attenuation at the periphery of the left more so than right lungs relates to summation artifact with overlying soft tissues. Note lobar consolidation, pleural effusion or pneumothorax. No aggressive osseous process noting only partial evaluation of the bones. Impression: No acute radiographic abnormality of the chest noting that the soft tissues are not well evaluated in the setting of reported cellulitis. Electronically signed by: MARYAN DUTTA MD (07/24/2020 12:21 AM) [id number]
[2020-07-24 00:24] LABS: ALBUMIN 3.4 g/dL (3.4-5.0); C REACTIVE PROTEIN 17.8 mg/L (0-3.3); DIRECT BILIRUBIN 0.1 mg/dL (0.0-0.2); TOTAL BILIRUBIN 0.2 mg/dL (0.2-1.0); TOTAL PROTEIN 6.8 g/dL (6.4-8.2)
[2020-07-24 00:36] VITALS: BP 130/76
[2020-07-24] MEDS ORDERED: ACET500T68 PO (00:49)
[2020-07-24 05:56] VITALS: BP 106/67
[2020-07-24] MEDS: APIXABAN 2.5 MG TABLET PO SCH ×2 (07:43→21:19)
[2020-07-24] MEDS: LACTOBACILLUS RHAMNOSUS GG 1 CAPSULE. PO SCH ×2 (07:43→21:19)
[2020-07-24 07:51] LABS: BASO # 0.1 x10^3/uL (0.0-0.2); BASO % 1 % (0-3); EOS # 0.1 x10^3/uL (0.0-0.7); EOS % 2 % (0-3); HEMOGLOBIN 11.6 g/dL (12.0-15.5); LYMPH # 1.8 x10^3/uL (1.0-4.8); LYMPH % 27 % (24-48); MEAN CORPUSCULAR HEMOGLOBIN 30 pg (25-35); MEAN CORPUSCULAR HGB CONC 32 g/dL (31-37); MEAN CORPUSCULAR VOLUME 92 fL (79-100); MONO # 0.5 x10^3/uL (0.0-1.1); MONO % 7 % (0-9); NEUT # 4.2 x10^3uL (1.8-7.7); NEUT % 63 % (31-73); PLATELET COUNT 254 x10^3/uL (140-400); RED BLOOD COUNT 3.93 x10^6/uL (3.50-5.40); RED CELL DISTRIBUTION WIDTH 14.2 % (11.5-14.5); WHITE BLOOD COUNT 6.7 x10^3/uL (4.0-11.0)
[2020-07-24 07:54] LABS: CALCIUM 7.9 mg/dL (8.5-10.1); CREATININE 0.7 mg/dL (0.6-1.0); GFR 87.9; POTASSIUM 3.7 mmol/L (3.5-5.1)
[2020-07-24 10:38] VITALS: BP 103/68
--- NOTE | 2020-07-24 10:41 | RAD ---
Left upper extremity venous Doppler ultrasound History: Reason: edema, pain. Lymphedema, breast cancer. Comparison: Left upper extremity venous Doppler, June 23, 2019. Procedure: Color flow Doppler, Doppler spectral analysis, and 2D images are obtained with and without compression in the jugular vein, subclavian vein, axillary vein, brachial vein, radial vein, ulnar vein, and basilic and cephalic veins. Findings: There is normal color flow, augmentation, and compressibility of all visualized vein segments. No evidence of deep venous thrombus is present. There is a 5 mm hypoechoic nodule in the subcutaneous tissues in the region of the left cephalic vein, nonspecific. IMPRESSION: No evidence of left upper extremity deep venous thrombosis. Electronically signed by: Blabir Gomez MD (07/24/2020 10:37 AM) [id number]
[2020-07-24] MEDS: VANCOMYCIN 1.25 GM in IV NORMAL SALINE 250ML 250 ML IV SCH ×2 (11:56→23:59)
[2020-07-24] MEDS ORDERED: HYDROcodone/APAP 5/325MG 1 TAB TABLET PO PRN (12:00)
[2020-07-24] MEDS ORDERED: ONDANSETRON ODT 4 MG TAB.RAPDIS PO PRN (12:30)
[2020-07-24] MEDS ORDERED: ZOLPIDEM 5 MG TABLET. PO PRN (12:45)
[2020-07-24] MEDS ORDERED: levoFLOXacin 750 MG TABLET PO SCH (13:00)
[2020-07-24] MEDS: ACETAMINOPHEN 500 MG TABLET PO PRN (13:39)
[2020-07-24 15:25] VITALS: BP 103/66
--- NOTE | 2020-07-24 16:55 | HP ---
ADMIT DATE: 07/23/2020 HISTORY OF PRESENT ILLNESS: A pleasant 54-year-old female with history of left breast cancer, came in because she has been having problems with severe left arm pain, swelling and tenderness, has had a previous history of cellulitis because of lymphedema in left arm secondary to her mastectomy where they removed her lymph nodes obviously because of the situation there. Otherwise, the patient was admitted for IV antibiotic therapy. The patient had been on previous oral antibiotics and failed those and has been on IV antibiotics off and on. As a result of that, the patient was admitted for IV antibiotic therapy and make further evaluation on her as indicated. PAST MEDICAL HISTORY: Includes that of breast cancer, left cancer as indicated. Influenza up-to-date. FAMILY HISTORY: Unknown. ALLERGIES: No known allergies. PAST SURGICAL HISTORY: The patient has had bilateral mastectomy in 2010. SOCIAL HISTORY: Denies smoking, alcohol or drug use. CODE: Full code. REVIEW OF SYSTEMS: Left arm is swollen, tender and painful. The patient otherwise has been unremarkable. Denies any melena, hematochezia, or hematemesis. Does have some fever and chills. Otherwise, unremarkable there. PHYSICAL EXAMINATION: GENERAL: This is a pleasant female, in moderate amount of distress. HEENT: The patient's head atraumatic, normocephalic. Eyes: PERRLA without jaundice. AXILLA: The left arm and left axillary area is swollen, tender, redness. The patient's pulses noted distally in the left arm, but there is redness and swelling and streaking from the upper left arm into the left axilla. VITAL SIGNS: Pulse upwards of 112, blood pressure 130/70, respiratory rate 20, temperature up to 99.3. LUNGS: Clear. CARDIOVASCULAR: Regular sinus rhythm. ABDOMEN: Soft, nontender. EXTREMITIES: No clubbing, cyanosis or edema. NEUROLOGIC: The patient was alert and oriented x 3. LABORATORY DATA: The patient's white count was basically unremarkable at 6 and the patient's sodium and potassium 138 and 3.7. Blood sugar 100. Cardiac enzymes negative because of left chest wall pain done. TSH was normal. The patient otherwise C-reactive protein 17.8. IMPRESSION: Cellulitis of the left upper arm with lymphangitis into the lymph nodes, history of bilateral mastectomy, history of breast cancer. PLAN: As above. Continue to monitor the patient accordingly, IV antibiotic therapy on that issue there. Otherwise, the abdomen was soft and nontender. The extremities, no clubbing, cyanosis, or edema. Neurologically intact. IMPRESSION: As noted cellulitis, lymphangitis. Continue on IV antibiotic therapy, vancomycin and make further evaluation on her as indicated. ELVIRA DE LA O MD DR: COLEMAN/aida JOB#: [id number] / [id number]
[2020-07-24 18:56] VITALS: BP 103/66
[2020-07-24] MEDS ORDERED: LACTOBACILLUS RHAMNOSUS GG 1 CAPSULE. PO SCH (21:00)
[2020-07-25 06:05] VITALS: BP 120/64
[2020-07-25] MEDS: APIXABAN 2.5 MG TABLET PO SCH (08:05)
[2020-07-25] MEDS: LACTOBACILLUS RHAMNOSUS GG 1 CAPSULE. PO SCH (08:05)
[2020-07-25] MEDS: ACETAMINOPHEN 500 MG TABLET PO PRN (08:06)
[2020-07-25] MEDS ORDERED: TAMOXIFEN 10 MG TABLET PO SCH (09:00)
[2020-07-25 11:05] VITALS: BP 118/68
[2020-07-25 11:57] LABS: VANC TR 8.4 mcg/mL (10.0-20.0)
[2020-07-25] MEDS: VANCOMYCIN 1.25 GM in IV NORMAL SALINE 250ML 250 ML IV SCH (12:03)
[2020-07-25] MEDS ORDERED: ONDA4TAB12 PO (14:12)
[2020-07-25] MEDS ORDERED: VANC1.2526 IV (14:12)
[2020-07-25] MEDS ORDERED: APIX2.5T PO (14:12)
[2020-07-25 15:21] VITALS: BP 115/66
== END 2020-07-25 15:39 | disposition home or self-care (01) ==
LOC: ER 23:00 → INTOOBSV 23:45 → 1 SOUTH 23:45
PROVIDERS: ADMIT Family Medicine; ATTEND Family Medicine
DX: L03.114 Cellulitis of left upper limb (principal); I10 Essential (primary) hypertension; R79.89 Other specified abnormal findings of blood chemistry; Z85.3 Personal history of malignant neoplasm of breast; Z90.13 Acquired absence of bilateral breasts and nipples; Z98.890 Other specified postprocedural states; Z23 Encounter for immunization
CPT/HCPCS: 36415; 36569; 71045; 80048; 80076; 80202; 82550; 83605; 83735; 84443; 84484; 85025; 85610; 86140; 87040; 90471; 90715; 93005; 93971; 96365; 96366; 96375; 99284; G0378; G0379; J0696; J2405; J3370; J7040; J7050; J7120; Q0162; 96374; 99285